=== PATIENT | female | born 1980 | race Caucasian/White ===

== ENCOUNTER → 2017-03-01 | Outpatient (CLI) | payer BC ==
[~2017-03-01] MED LIST: PRENTAB26 PO
== END | disposition home or self-care (01) ==
LOC: C.PAPS 11:22
PROVIDERS: ATTEND Obstetrics & Gynecology
DX: Z01.419 Encounter for gynecological examination (general) (routine) without abnormal findings (principal)

== ENCOUNTER → 2017-05-25 | Outpatient (CLI) | payer OTHER ==
[2017-05-25 10:38] LABS: LUTEINIZING HORMONE 5.63 IU/L
== END | disposition home or self-care (01) ==
LOC: C.LAB1850 09:15
PROVIDERS: ATTEND Specialist
DX: Z31.41 Encounter for fertility testing (principal)

== ENCOUNTER → 2017-07-11 | Outpatient (CLI) | payer OTHER | END | disposition home or self-care (01) | LOC: C.LAB1850 11:29 | PROVIDERS: ATTEND Specialist | DX: O09.00 Supervision of pregnancy with history of infertility, unspecified trimester (principal) ==

== ENCOUNTER → 2017-07-19 | Outpatient (CLI) | payer OTHER ==
[2017-07-19 12:19] LABS: LUTEINIZING HORMONE 5.73 IU/L
== END | disposition home or self-care (01) ==
LOC: C.LAB1850 11:13
PROVIDERS: ATTEND Specialist
DX: Z31.41 Encounter for fertility testing (principal)

== ENCOUNTER → 2018-01-01 | Outpatient (CLI) | payer OTHER ==
[2018-01-01 11:15] LABS: LUTEINIZING HORMONE 6.3 IU/L
== END | disposition home or self-care (01) ==
LOC: C.LAB1850 09:50
PROVIDERS: ATTEND Specialist
DX: Z31.41 Encounter for fertility testing (principal)

== ENCOUNTER → 2018-01-02 | Outpatient (CLI) | payer OTHER ==
[2018-01-02 09:19] LABS: LUTEINIZING HORMONE 4.77 IU/L
== END | disposition home or self-care (01) ==
LOC: C.LAB1850 08:21
PROVIDERS: ATTEND Specialist
DX: Z31.41 Encounter for fertility testing (principal)

== ENCOUNTER 2018-09-21 19:15 | Inpatient (IN) ==
[2018-09-21] MEDS ORDERED: LACTATED RINGER'S 1,000 ML IV PRN ×2 (19:41→20:44)
[2018-09-21] MEDS ORDERED: OXYTOCIN 30 UNITS/500 ML BAG IV PRN ×2 (19:41→22:04)
--- NOTE | 2018-09-21 19:51 | History & Physical Report ---
Date of Service September 21, 2018 Assessment & Plan (1) 38 weeks gestation of : (2) AMA (advanced maternal age) multigravida 35+: (3) Gestational diabetes: admit in active labor, iv, labs, will check metab profile given bps, bsgs q2hr, requests epidural, ok to have. fhts categ 1, baseline 170s suspect dehydration, admitister bolus ivf. History of Present Illness Chief Complaint: regular ctx since this afternoon Primary Care Provider: NO PCP 38yo at 38+wks ega presents to L&D with above cc. No rom, some bloody show. +FM. pnc c/b 1. ama 2. GDM diet controlled pnl rh pos, ri, gbs neg, cell free dna--low risk obh: x 1 gynh: nl paps, no stds, h/o infertility, had injectables and iui pmh: neg psh: knee surgery, wisdom teeth sh: no tob/etoh/drugs fh: no tamir anom or mr Allergies Allergy/AdvReac Type Severity Reaction Status Date / Time tetracycline Allergy Unknown UNKNOWN Verified 11/18/15 08:08 Home Medications Home Medications Medication Instructions Recorded Confirmed Type Multivit/Min/Iron/Fol Ac/Pren 1 tab PO DAILY #0 tab 04/22/14 History ( Vitamin) Physical Exam Constitutional: WD/WN, vitals as above Respiratory: normal respiratory effort, lungs clear to auscultation Cardiovascular: Rate/Rhythm: regular rate and regular rhythm Gastrointestinal (Abdomen): gravid nt Musculoskeletal: no edema Genitourinary: OB Exam Abdomen: + estimated weight (7#) OB Exam Monitor Tracing: + external FHT monitor used (170 mod variability), + external uterine monitor used (q2) and + category I Results & Data Vital Signs (Past 12 Hours) Vital Signs Temp Pulse Resp BP 09/21/18 19:30 93 H 133/97 09/21/18 19:26 98.1 F 81 20 131/97
[2018-09-21 20:04] LABS: Hematocrit (blood only) 35.7 % (37-47); Hemoglobin 12.3 g/dL (12.0-16.0); Mean Corpuscular Volume 89.5 fL (80-100); Mean Platelet Volume 10.4 fL (7.4-10.4); Platelet Count 201 K/uL (130-400); RDW Coefficient of Variation 14.7 % (11.5-14.5); RDW Standard Deviation 48.6 fL (36.4-46.3); Red Blood Count 3.99 M/uL (4.2-5.4); White Blood Count 12.07 K/uL (4.8-10.8)
[2018-09-21 20:05] LABS: Mean Corpuscular Hgb Conc 34.5 g/dL (32-36)
[2018-09-21] MEDS ORDERED: BUPIVACAINE 0.25% 30 ML VIAL ONE (20:15)
[2018-09-21] MEDS ORDERED: fentaNYL citrate 100 MCG/2 ML VIAL ONE (20:15)
[2018-09-21] MEDS ORDERED: ePHEDrine sulfate 50 MG/ML AMP ONE (20:15)
[2018-09-21] MEDS ORDERED: fentaNYL 2MCG/ML ROPIV 1.25MG/ML 100 ML BAG EPI ONE (20:16)
[2018-09-21 20:21] LABS: Alanine Aminotransferase 16 U/L (12-78); Albumin Level 2.9 gm/dl (3.4-5.0); Aspartate Aminotransferase 17 U/L (15-37); BUN Creatinine Ratio 14.7 (10-20); Blood Urea Nitrogen 10 mg/dl (7-18); Calcium 9.2 mg/dl (8.5-10.1); Carbon Dioxide 18 mmol/L (21-32); Chloride 108 mmol/L (98-107); Est GFR (African American) 128.3; Est GFR (Non-African American) 110.7; Glucose 90 mg/dl (70-99); Potassium 3.7 mmol/L (3.5-5.1); Sodium 136 mmol/L (136-145)
[2018-09-21 20:24] LABS: Albumin Globulin Ratio 0.7 (0.9-2); Alkaline Phosphatase 191 U/L (45-117); Bilirubin,Total 0.3 mg/dl (0.2-1); Globulin 3.9 gm/dl (2.5-4.0); Total Protein 6.8 gm/dl (6.4-8.2)
[2018-09-21] MEDS ORDERED: ONDANSETRON INJ 2 MG/ML 2 ML VIAL IV PRN (20:44)
[2018-09-21] MEDS ORDERED: NALOXONE HCL 1 MG in SODIUM CHLORIDE 0.9% 1000ML 1,000 ML IV PRN (20:44)
[2018-09-21] MEDS ORDERED: DiphenhydrAMINE HCL 50 MG/ML VIAL IV PRN (20:44)
[2018-09-21] MEDS ORDERED: NALOXONE HCL 0.4 MG/1 ML VIAL/CARP IV PRN (20:44)
[2018-09-21] MEDS ORDERED: PROMETHAZINE HCL 6.25 MG in SODIUM CHLORIDE 0.9% 50 ML IV PRN (20:44)
[2018-09-21] MEDS ORDERED: ePHEDrine sulfate 50 MG/ML AMP IV PRN (20:44)
[2018-09-21] MEDS ORDERED: fentaNYL 2MCG/ML ROPIV 1.25MG/ML 100 ML BAG EPI PRN (20:44)
[2018-09-21] MEDS ORDERED: NALBUPHINE HCL INJ 10 MG/ML AMP IV PRN (20:44)
--- NOTE | 2018-09-21 20:44 | Anesthesiology Consultation ---
Date of Service September 21, 2018 Assessment & Plan (1) Encounter for pre-operative examination: Chart Review Chart Review: Patient NOT seen in Pre Admission Testing and Acceptable Risk for Labor Epidural Consults Requested none ASA ASA2 Proposed Anesthesia Anesthesia Type: Labor Epidural Risk / Benefits Reviewed With: PT / POA / Parent / Guardian, Accepts Plan and Informed Consent Obtained History Allergies Allergy/AdvReac Type Severity Reaction Status Date / Time tetracycline Allergy Unknown UNKNOWN Verified 11/18/15 08:08 Medications Home Medications Medication Instructions Recorded Confirmed Last Taken ferrous sulfate [iron] 325 mg PO DAILY 09/21/18 09/21/18 09/21/18 vit-iron fum-folic ac 1 tab PO DAILY 09/21/18 09/21/18 09/20/18 [ Vitamin] Past Medical History Medical History Chicken pox H/O wisdom tooth extraction Exercise / Class Metabolic Activity II 4-5 Yardwork/Stairs/Walk up hill Past Surgical History Surgical History History of knee surgery Past Anesthesia History No Hx of Anesthesia Complications and No Family Hx of Anesthesia Complications History of PONV No Hx of PONV and No Hx of Motion Sickness Physical Exam Vital Signs Last Vital Signs Temp 36.7 C 09/21/18 19:26 Pulse 85 09/21/18 20:39 Resp 20 09/21/18 19:26 BP 114/56 L 09/21/18 20:39 Pulse Ox 96 09/21/18 20:38 ENMT Mouth: no dentition abnormality Thyromental Distance: > or= 3.5 Finger Breadths Mallampati Class: II Neck normal visual inspection Respiratory normal respiratory effort Auscultation: lungs clear to auscultation bilaterally Cardiovascular Rate/Rhythm: regular rate and regular rhythm Psychiatric Orientation: alert Testing Laboratory Results 09/21/18 19:56 09/21/18 19:56
[2018-09-21] MEDS ORDERED: BENZOCAINE 20% AER SPR 82.5 GM CAN EXT PRN (22:04)
[2018-09-21] MEDS ORDERED: OXYCODONE/ACETAMINOPHEN 5mg/325mg TAB PO PRN (22:04)
[2018-09-21] MEDS ORDERED: DIPHTHERIA/TETANUS/PERTUSSIS 0.5 ML SYR/VIAL IM ONE (22:04)
[2018-09-21] MEDS ORDERED: OXYTOCIN 20 UNITS in LACTATED RINGER'S 1,000 ML IV SCH (22:04)
[2018-09-21] MEDS ORDERED: SUPERCREAM 0.870% 15 GM JAR EXT PRN (22:04)
[2018-09-21] MEDS ORDERED: ACETAMINOPHEN 325 MG TAB PO PRN (22:04)
[2018-09-21] MEDS ORDERED: HYDROCORTISONE ACETATE 25 MG SUPP PR PRN (22:04)
--- NOTE | 2018-09-21 22:21 | Delivery Summary ---
DATE OF OPERATION: 09/21/2018 DATE OF DELIVERY: 09/21/2018 DELIVERY SUMMARY: The patient dilated to complete and pushed over a viable female infant, Apgars 9 and 10 via over intact perineum. Mouth and nose bulb suctioned at the perineum. The shoulders and body delivered with ease. The infant is vigorous and crying at . The cord was clamped at 30 seconds of life and then to maternal abdomen where the cord was then doubly clamped and cut. Placenta delivered spontaneously and intact, 3-vessel cord. Hemostasis achieved with dilute Pitocin and uterine massage. Cervix and sulci intact. Small periurethral laceration noted and a single interrupted suture of 4-0 Vicryl placed to reapproximate the tissue. A small bleeding site at the hymen posteriorly noted and stitched with a [id number] suture of 4-0 Vicryl for excellent hemostasis. Mother and baby stable in recovery. EBL 300 mL. I attest to the content of the Intraoperative Record and any orders documented therein. Any exception s are noted below.
--- NOTE | 2018-09-22 06:34 | Obstetrical Progress Note ---
Date of Service September 22, 2018 Assessment & Plan (1) Status post vaginal delivery: routine pp care. rh pos. rubella immune. . (2) Gestational diabetes: (3) AMA (advanced maternal age) multigravida 35+: Subjective Ambulation: ambulating normally Voiding: no voiding problems Diet Tolerance:: regular diet Lochia:: Moderate Feeding Type:: breast feeding doing well. holding baby. breast feeding. Physical Exam Vital Signs (Past 24 Hours) Last Vital Signs Temp 98.6 F 09/22/18 04:15 Pulse 70 09/22/18 04:15 Resp 18 09/22/18 04:15 BP 118/71 09/22/18 04:15 Pulse Ox 99 09/21/18 21:53 Constitutional WD/WN, vitals as above Respiratory normal respiratory effort, lungs clear to auscultation Cardiovascular Rate/Rhythm: regular rate and regular rhythm Gastrointestinal (Abdomen) Inspection/Auscultation: abdomen normal to inspection Percussion/Palpation: abdomen soft Fundus firm 2cm down Musculoskeletal nt calves. Psychiatric A+Ox3, euthymic affect
[2018-09-22] MEDS: IBUPROFEN 600 MG TAB PO PRN ×2 (06:59→20:03)
--- NOTE | 2018-09-22 08:16 | Anesthesia Procedure Note ---
Date of Service September 22, 2018 Anesthesia Post Epidural Note Vital Signs Vital Signs: Temp Pulse Resp BP Pulse Ox 37.1 C 69 20 121/79 99 09/22/18 07:30 09/22/18 07:30 09/22/18 07:30 09/22/18 07:30 09/21/18 21:53 Pain Intensity Bilateral Episiotomy/Laceration: Pain Intensity: 2 Notes Mental Status: alert / awake / arousable Nausea / Vomiting: adequately controlled Pain: adequately controlled Airway Patency, RR, SpO2: stable & adequate BP & HR: stable & adequate Hydration State: stable & adequate Neuraxial Anesthesia: was administered and sensory block is resolving Anesthetic Complications: no major complications apparent Epidural: Removed without complications and With tip intact
[2018-09-22] MEDS: DOCUSATE SODIUM 100 MG CAP PO SCH (09:27)
[2018-09-23] MEDS: IBUPROFEN 600 MG TAB PO PRN (06:42)
[2018-09-23] MEDS: DOCUSATE SODIUM 100 MG CAP PO SCH (08:22)
--- NOTE | 2018-09-23 09:45 | Obstetrical Progress Note ---
Date of Service September 23, 2018 Assessment & Plan (1) Status post vaginal delivery: routine pp care. rh pos. rubella immune. . Stable for discharge (2) Gestational diabetes: (3) AMA (advanced maternal age) multigravida 35+: Subjective Patient doing well Physical Exam Genitourinary: OB Exam Abdomen: + fundal height Fundus: + firm and + relation to umbilicus (Below); not tender and not boggy Results & Data Vital Signs (Past 12 Hours) Vital Signs Temp Pulse Resp BP Pulse Ox 09/22/18 23:40 97.7 F 59 L 20 117/68 95
== END 2018-09-23 12:02 | disposition home or self-care (01) | DRG 807 ==
LOC: 4S1 19:15 → OPB 19:15 → 4S1 19:41 → 4S2 09-22 00:36